=== PATIENT | male | born 1950 | race Caucasian/White ===

== ENCOUNTER 2023-07-12 08:56 | Emergency (ER) | payer OTHER, MEDICAID ==
[~2023-07-12] VITALS: Ht 175.3 cm; Wt 79.0 kg
[2023-07-12 10:03] VITALS: BP 128/72; PULSE 72; RESP 18; TEMP 99.3; O2SAT 96
[2023-07-12] MEDS ORDERED: PRED20TA2 PO (11:05)
[2023-07-12] MEDS ORDERED: ACET-1080 PO (11:05)
== END 2023-07-12 11:14 | disposition home or self-care (01) ==
LOC: ER 08:56
DX: M23.91 Unspecified internal derangement of right knee (principal)
CPT/HCPCS: 73562

== ENCOUNTER 2024-02-08 10:49 | Emergency (ER) | payer OTHER, MEDICAID ==
[~2024-02-08] VITALS: Ht 172.7 cm; Wt 82.9 kg
[~2024-02-08 10:49] MED LIST: ACET-1080 PO; PRED20TA2 PO
[2024-02-08] MEDS: KETOROLAC TROMETH 30 MG/ML 1ML VIAL IM ONE (11:20)
--- NOTE | 2024-02-08 11:27 | ED.PDOC ---
Back pain HPI HPI Comments 73 y.o male presents to the ED for a chief complaint of left lateral chest wall pain that started 10 days ago s/p playing with his dog. Patient reports pain presented after twisting himself. Patient denies any falls, heavy lifting, hematuria. Patient has a medical history of Cervical trauma with paralyzes. Chief Complaint: Fall Injury Time Seen by MD: 10:53 Primary Care Provider: UNKNOWN Reviewed Notes: Nurses Notes, Medications, Allergies Allergies: Coded Allergies: NO KNOWN ALLERGIES (Unverified , 02/08/24) Information Source: Patient Mode of Arrival: Ambulatory Timing: Days (10) Duration: Since onset Location of Back pain: (L) Upper back Severity: Moderate Quality: Sharp Onset: Twisting History of: None Past Medical History Past Medical History (Other): Neck injury Surgical History (Other): Cervical partial removal Family History Family History: Reviewed,noncontributory to illness Social History Smoker: Non-Smoker Alcohol: Denies ETOH Use Drugs: Denies Drug Use Lives In: Home Constitutional: denies: chills, diaphoresis, fatigue, fever, malaise, sweats, weakness, others EENTM: denies: blurred vision, double vision, ear bleeding, ear discharge, ear drainage, ear pain, ear ringing, eye pain, eye redness, hearing loss, mouth pain, mouth swelling, nasal discharge, nose bleeding, nose congestion, nose pain, photophobia, tearing, throat pain, throat swelling, voice changes, others Respiratory: denies: cough, hemoptysis, orthopnea, SOB at rest, shortness of breath, SOB with excertion, stridor, wheezing, others Cardiovascular: denies: chest pain, dizzy spells, diaphoresis, Dyspnea on exertion, edema, irregular heart beat, left arm pain, lightheadedness, palpitations, PND, syncope, others Gastrointestinal: denies: abdomen distended, abdominal pain, blood streaked bowels, constipated, diarrhea, dysphagia, difficulty swallowing, hematemesis, melena, nausea, poor appetite, poor fluid intake, rectal bleeding, rectal pain, vomiting, others Genitourinary: denies: burning, dysuria, flank pain, frequency, hematuria, incontinence, penile discharge, penile sore, pain, testicle pain, testicle sw elling, urgency, others Neurological: denies: dizziness, fainting, headache, left sided numbness, left sided weakness, numbness, paresthesia, pre-existing deficit, right sided numbness, right sided weakness, seizure, speech problems, tingling, tremors, weakness, others Musculoskeletal: reports: others (left lateral chest wall pain ); denies: back pain, gout, joint pain, joint swelling, muscle pain, muscle stiffness, neck pain Integumetry: denies: bruises, change in color, change in hair/nails, dryness, laceration, lesions, lumps, rash, wounds, others Allergic/Immunocompromised: denies: Difficulty Healing, Frequent Infections, Hives, Itching, others Hematologic/Lymphatic: denies: anemia, blood clots, easy bleeding, easy bruising, swollen glands, others Endocrine: denies: excessive hunger, excessive sweating, excessive thirst, excessive urination, flushing, intolerance to cold, intolerance to heat, unexplained weight gain, unexplained weight loss, others Psychiatric: denies: anxiety, bipolar disorder, depression, hopeless, panic disorder, schizophrenia, sleepless, suicidal, others All Other Systems: Reviewed and Negative Physical Exam General Appearance: No Apparent Distress, Normal HEENT: Normal ENT Inspection, Pharynx Normal, TMs Normal Neck: Full Range of Motion, Non-Tender, Normal, Normal Inspection Respiratory: Chest Non-Tender, Lungs Clear, No Accessory Muscle Use, No Respiratory Distress, Normal Breath Sounds Cardiovascular: No Edema, No JVD, No Murmur, No Gallop, Normal Peripheral Pulses, Regular Rate/Rhythm Breast Exam: Deferred Gastrointestinal: No Organomegaly, Non Tender, No Pulsatile Mass, Normal Bowel Sounds, Soft Genitalia: Deferred Pelvic: Deferred Rectal: Deferred Extremities: No calf tenderness, Normal capillary refill, Normal inspection, Normal range of motion, Non-tender, No pedal edema Musculoskeletal : Location: Left Extremity Location: Chest Apperance: Normal, Tenderness Neurologic: Alert, 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 Was a procedure done?: No Back Pain Differential Dx Differential Diagnosis: Fracture, Musculoskeletal Pain, Urolithiasis, Other (ptx) X-Ray, Labs, Meds, VS Vital Signs Date Time Temp Pulse Resp B/P (MAP) Pulse Ox O2 Delivery O2 Flow Rate FiO2 02/08/24 11:22 72 18 121/64 (83) 97 02/08/24 11:22 72 18 97 Room Air 02/08/24 10:58 97.4 81 16 132/90 (104) 97 Current Medications Medications (Trade) Dose Ordered Sig/Marissa Route Start Time Stop Time Status Last Admin Ketorolac Tromethamine (Toradol Injection) 15 mg ONCE ONCE IM 02/08/24 11:15 02/08/24 11:16 DC 02/08/24 11:20 Time of 1ST Reevaluation: 11:27 Reevaluation 1ST: Unchanged Time of 2ND Reevaluation: 12:38 Reevaluation 2ND: Improved Patient Education/Counseling: Diagnosis, Treatment, Prognosis, Need For Follow Up Family Education/Counseling: No Family Present Additional Information pt has a left 10th rib fracture and L3 compression fracture- no ptx. pain is not unbearable. i will start him on t#3, as pt requested Departure 1 Departure Time of Disposition: 12:39 Impression: Primary Impression: Left rib fracture Qualified Codes: S22.32XA - Fracture of one rib, left side, initial encounter for closed fracture Additional Impression: Compression fracture Disposition: 01 HOME / SELF CARE / HOMELESS Condition: Good e-Prescriptions Acetaminophen W/ Codeine (Tylenol #4 W/Codeine) 1 Tab Tb 1 TAB PO Q8HP PRN for 5 Days, #15 TAB Prov: ZIYAD RANDHAWA MD 02/08/24 Discharged With: Self Critical Care Note Critical Care Time?: No Stability Stability form required: No I personally scribed for ZIYAD RANDHAWA MD ([email or web address]) on 02/08/24 at 11:27. Electronically submitted by Kerrie Brooks ([facility]). ZIYAD RANDHAWA MD Feb 08, 2024 11:27
--- NOTE | 2024-02-08 11:43 | DVH ---
EXAMINATION: XY L RIB X RAY INDICATION: PAIN COMPARISON: None TECHNIQUE: Frontal view of the chest in oblique views of the left ribs FINDINGS: No focal consolidation, pleural effusion or significant pneumothorax. Normal cardiomediastinal silhou ette. Acute nondisplaced left 10th rib fracture. Age-indeterminate L3 compression fracture causing approxim ately 50% height loss. IMPRESSION: 1. No acute cardiopulmonary disease. 2. Acute left 10th rib fracture. Age indeterminate L3 compression fracture causing approximately 50% vertebral body height loss.
[2024-02-08] MEDS ORDERED: ACET300T58 PO (12:41)
[2024-02-08 12:51] VITALS: BP 105/67; PULSE 67; RESP 18; TEMP 98.1; O2SAT 96
== END 2024-02-08 12:53 | disposition home or self-care (01) ==
LOC: MERGE 10:49 → ER 10:49
DX: S22.32XA Fracture of one rib, left side, initial encounter for closed fracture (principal); S32.038A Other fracture of third lumbar vertebra, initial encounter for closed fracture; Z98.890 Other specified postprocedural states; X58.XXXA Exposure to other specified factors, initial encounter; Y93.89 Activity, other specified; Y92.89 Other specified places as the place of occurrence of the external cause; Y99.8 Other external cause status
CPT/HCPCS: 71101; 96372; 99283; J1885

== ENCOUNTER → 2024-02-21 | Outpatient (CLI) | payer OTHER, MEDICAID ==
[~2024-02-21] MED LIST changes: +ACET300T58 PO
== END | disposition home or self-care (01) ==
LOC: Rad HDHVI 10:31
PROVIDERS: ATTEND Internal Medicine Cardiovascular Disease
DX: Z01.818 Encounter for other preprocedural examination (principal); R94.39 Abnormal result of other cardiovascular function study
CPT/HCPCS: 93306

== ENCOUNTER → 2024-02-26 | Outpatient (CLI) | payer OTHER, MEDICAID ==
[~2024-02-26] VITALS: Ht 172.7 cm; Wt 79.4 kg
== END | disposition home or self-care (01) ==
LOC: Rad HDHVI 09:52
PROVIDERS: ATTEND Internal Medicine Cardiovascular Disease
DX: Z01.810 Encounter for preprocedural cardiovascular examination (principal); R94.31 Abnormal electrocardiogram [ECG] [EKG]
CPT/HCPCS: 78452; 93017; 96374; A9500

== ENCOUNTER 2024-09-04 18:07 | Emergency (ER) | payer OTHER, MEDICAID ==
[~2024-09-04] VITALS: Ht 172.7 cm; Wt 80.9 kg
[2024-09-04 18:52] LABS: Basophils # (auto) 0.1 10 ^3/uL (0-0.2); Basophils % (auto) 1.1 % (0.0-2.0); Eosinophils # (auto) 0.1 10 ^3/uL (0-0.8); Eosinophils % (auto) 1.7 % (0.0-7.0); Hematocrit 42.3 % (41.0-53.0); Hemoglobin 14.2 g/dL (13.5-17.5); Lymphocytes # (auto) 0.9 10 ^3/uL (0.4-5.4); Lymphocytes % (auto) 18.3 % (10.0-50.0); Mean Corpuscular Hemoglobin 29.4 pg (28.0-32.0); Mean Corpuscular Hgb Conc. 33.5 g/dL (32.0-36.0); Mean Corpuscular Volume 87.7 fL (80.0-100.0); Monocytes # (auto) 0.5 10 ^3/uL (0-1.3); Monocytes % (auto) 8.9 % (0.0-12.0); Neutrophils # (auto) 3.6 10 ^3/uL (1.6-8.6); Nucleated Red Blood Cells % 0.2 %; Platelet Count (auto) 186 10^3/uL (140-450); Red Blood Cells 4.82 10^6/uL (4.5-5.90); Red Cell Distribution Width 13.8 % (11.8-14.3); White Blood Cell 5.1 10^3/uL (4.4-10.8)
[2024-09-04 19:13] LABS: Alanine Aminotransferase 15 U/L (7-40); Albumin 4.5 g/dL (3.2-4.8); Alkaline Phosphatase 77 U/L (46-116); Anion Gap 9 (5-15); Aspartate Aminotransferase 21 U/L (<34); BUN/Creatinine Ratio 18.2 (10.0-20.0); Bilirubin, Total 0.5 mg/dL (0.2-1.0); Blood Urea Nitrogen 20 mg/dL (9-23); Calcium 10.1 mg/dL (8.7-10.4); Carbon Dioxide 26 mmol/L (20-31); Potassium 3.8 mmol/L (3.5-5.1); Sodium 143 mmol/L (136-145); Total Protein 7.2 g/dL (5.7-8.2)
[2024-09-04 19:24] LABS: Chloride 108 mmol/L (98-107); Glucose 110 mg/dL (74-106)
[2024-09-04 19:25] LABS: Lactic Acid w/Reflex 2.5 mmol/L (0.4-2.0)
--- NOTE | 2024-09-04 20:04 | DVH ---
EXAM: XY LUMBAR SPINE 3 VIEW INDICATION: Radiculopathy COMPARISON: None TECHNIQUE: 3 views of the lumbar spine were obtained. Findings: There is no evidence of an acute fracture, spondylolysis, or spondylolisthesis. Lateral wedge-shaped compression fracture of L3, likely chronic. Mild spondylosis. Multilevel [id number] degenerative disc disease. No blastic or lytic lesions are appreciated. No radiopaque foreign bodies. No superficial soft tissue abnormalities. Impression: 1. No acute osseous abnormality. 2. Mild degenerative changes with multilevel degenerative disc disease. 3. Lateral wedge-shaped compression fracture of L3 favored chronic.
--- NOTE | 2024-09-04 20:18 | DVH ---
CT BRAIN WITHOUT CONTRAST HISTORY: Altered mental status TECHNIQUE: Axial scans were obtained from the skull base through the vertex without contrast. Sagitta l and coronal reformats were generated. One or more of the following radiation dose reduction techniq ues were used for this examination: automated exposure control, adjustment of the mA and/or kV accord ing to patient size, use of iterative reconstruction technique. COMPARISON: None FINDINGS: Multifocal areas of vasogenic edema in both cerebral hemispheres, most apparent in the right frontal region. Hyperdense lesion in the left frontal lobe measuring approximately 2 cm in diameter. There is mass effect on the anterior horn of the left lateral ventricle. Edema also causes mild effac ement of the anterior horn of the right lateral ventricle. There is associated 2-3 mm of leftward sub falcine shift. The visualized paranasal sinuses and mastoid air cells are clear. No grossly displaced calvarial abno rmalities identified. IMPRESSION: Above findings suggest metastatic disease with an apparent dominant lesion in the left frontal region . Recommend MRI without and with contrast to further evaluate.
[2024-09-04] MEDS: SODIUM CHLORIDE 0.9% 1,000 ML IV ONE (20:28)
--- NOTE | 2024-09-04 20:31 | ED.PDOC ---
HPI (NEURO) HPI Comments This patient is a 74-year-old male who arrives the ED today in a wheelchair, which is not his normal means of ambulation, for evaluation of generalized left- sided weakness that has been going on for the past month. Patient states that approximately one month ago a happened noticed in his left foot was lagging. Patient states it subsequent to that he has had some left-sided weakness throughout. Patient was slow in conversation and dialogue, but denies any altered mental status. Patient denies any fever nausea or vomiting. Patient denies any traumatic events. Vital signs were stable on arrival. Chief Complaint: General Weakness Time Seen by MD: 18:13 Primary Care Provider: BRAD Johnson Notes: Nurses Notes Information Source: Patient Mode of Arrival: Wheelchair Severity: Moderate Dizziness/Weakness Severity: Unable to do activities Headache Severity: None Timing: Weeks Duration: Since onset Prehospital treatment: None Onset: At rest Circumstances: Spontaneous Symptoms: Weakness Before: Normal After: Normal Mentation Modifying factors: Nothing Associated Signs and Symptoms: None Past Medical History PAST MEDICAL HISTORY: Denies Surgical History: Denies all surgeries Family History Family History: Reviewed,noncontributory to illness Social History Smoker: Non-Smoker Alcohol: Denies ETOH Use Drugs: Denies Drug Use Lives In: Home Constitutional: denies: chills, diaphoresis, fatigue, fever, malaise, sweats, weakness, others EENTM: denies: blurred vision, double vision, ear bleeding, ear discharge, ear drainage, ear pain, ear ringing, eye pain, eye redness, hearing loss, mouth pain, mouth swelling, nasal discharge, nose bleeding, nose congestion, nose pain, photophobia, tearing, throat pain, throat swelling, voice changes, others Respiratory: denies: cough, hemoptysis, orthopnea, SOB at rest, shortness of breath, SOB with excertion, stridor, wheezing, others Cardiovascular: denies: chest pain, dizzy spells, diaphoresis, Dyspnea on exertion, edema, irregular heart beat, left arm pain, lightheadedness, palpitations, PND, syncope, others Gastrointestinal: denies: abdomen distended, abdominal pain, blood streaked bowels, constipated, diarrhea, dysphagia, difficulty swallowing, hematemesis, melena, nausea, poor appetite, poor fluid intake, rectal bleeding, rectal pain, vomiting, others Genitourinary: denies: burning, dysuria, flank pain, frequency, hematuria, incontinence, penile discharge, penile sore, pain, testicle pain, testicle swelling, urgency, others Neurological: denies: dizziness, fainting, headache, left sided numbness, left sided weakness, numbness, paresthesia, pre-existing deficit, right sided numbne ss, right sided weakness, seizure, speech problems, tingling, tremors, weakness, others Musculoskeletal: reports: others (Generalized left-sided weakness); denies: back pain, gout, joint pain, joint swelling, muscle pain, muscle stiffness, neck pain Integumetry: denies: bruises, change in color, change in hair/nails, dryness, laceration, lesions, lumps, rash, wounds, others Allergic/Immunocompromised: denies: Difficulty Healing, Frequent Infections, Hives, Itching, others Hematologic/Lymphatic: denies: anemia, blood clots, easy bleeding, easy bruising, swollen glands, others Endocrine: denies: excessive hunger, excessive sweating, excessive thirst, excessive urination, flushing, intolerance to cold, intolerance to heat, unexplained weight gain, unexplained weight loss, others Psychiatric: denies: anxiety, bipolar disorder, depression, hopeless, panic disorder, schizophrenia, sleepless, suicidal, others Unable to Obtain due to: Altered Mental Status (Patient is slightly slow in his response) Physical Exam General Appearance: Moderate Distress (Moderate distress due to the presentation of concerning left-sided weakness. Patient has minimal pain complaints, but is responding to questioning slowly.), Normal HEENT: Normal ENT Inspection, Pharynx Normal, TMs Normal Neck: Full Range of Motion, Non-Tender, Normal, Normal Inspection Respiratory: Chest Non-Tender, Lungs Clear, No Accessory Muscle Use, No Respiratory Distress, Normal Breath Sounds Cardiovascular: No Edema, No JVD, No Murmur, No Gallop, Normal Peripheral Pulses, Regular Rate/Rhythm Breast Exam: Deferred Gastrointestinal: No Organomegaly, Non Tender, No Pulsatile Mass, Normal Bowel Sounds, Soft Genitalia: Deferred Pelvic: Deferred Rectal: Deferred Extremities: Other (Patient displays some moderate left-sided weakness in upper extremities with a 3+ over 5+ noted on the left side. Greater weakness noted to the left leg throughout with a proximally 2+ over 5+ noted.) Neurologic: Alert, Other (Patient displays left-sided weakness throughout and a slow response to questioning.) Cerebellar Function: NOT DONE Reflexes: NOT DONE Skin: Dry, Normal Color, Warm Lymphatic: No Adenopathy Was a procedure done? Was a procedure done?: No Differential Diagnosis (SZ) Seizure: Other (Sepsis, electrolyte abnormality, subarachnoid hemorrhage, subdural hematoma, intracranial mass) X-Ray, Labs, Meds, VS Vital Signs Date Time Temp Pulse Resp B/P (MAP) Pulse Ox O2 Delivery O2 Flow Rate FiO2 09/04/24 20:13 55 16 95 Room Air 09/04/24 20:13 98.1 55 16 111/56 (74) 95 98.1 09/04/24 18:19 98.1 70 18 102/66 (78) 95 98.1 Lab Test 09/04/24 18:38 Range/Units White Blood Count 5.1 4.4-10.8 10^3/uL Red Blood Count 4.82 4.5-5.90 10^6/uL Hemoglobin 14.2 13.5-17.5 g/dL Hematocrit 42.3 41.0-53.0 % Mean Corpuscular Volume 87.7 80.0-100.0 fL Mean Corpuscular Hemoglobin 29.4 28.0-32.0 pg Mean Corpuscular Hemoglobin Concent 33.5 32.0-36.0 g/dL Red Cell Distribution Width 13.8 11.8-14.3 % Platelet Count 186 140-450 10^3/uL Mean Platelet Volume 9.5 6.9-10.8 fL Neutrophils (%) (Auto) 70.0 37.0-80.0 % Lymphocytes (%) (Auto) 18.3 10.0-50.0 % Monocytes (%) (Auto) 8.9 0.0-12.0 % Eosinophils (%) (Auto) 1.7 0.0-7.0 % Basophils (%) (Auto) 1.1 0.0-2.0 % Neutrophils # (Auto) 3.6 1.6-8.6 10 ^3/uL Lymphocytes # (Auto) 0.9 0.4-5.4 10 ^3/uL Monocytes # (Auto) 0.5 0-1.3 10 ^3/uL Eosinophils # (Auto) 0.1 0-0.8 10 ^3/uL Basophils # (Auto) 0.1 0-0.2 10 ^3/uL Nucleated Red Blood Cells 0.2 % Sodium Level 143 136-145 mmol/L Potassium Level 3.8 3.5-5.1 mmol/L Chloride Level 108 H 98-107 mmol/L Carbon Dioxide Level 26 20-31 mmol/L Anion Gap 9 5-15 Blood Urea Nitrogen 20 9-23 mg/dL Creatinine 1.10 0.700-1.30 mg/dL Glomerular Filtration Rate Calc 70 >90 mL/min BUN/Creatinine Ratio 18.2 10.0-20.0 Serum Glucose 110 H 74-106 mg/dL Lactic Acid Level 2.5 *H 0.4-2.0 mmol/L Calcium Level 10.1 8.7-10.4 mg/dL Total Bilirubin 0.5 0.2-1.0 mg/dL Aspartate Amino Transferase (AST) 21 <34 U/L Alanine Aminotransferase (ALT) 15 7-40 U/L Alkaline Phosphatase 77 46-116 U/L Troponin I High Sensitivity 3 L </=54 ng/L Total Protein 7.2 5.7-8.2 g/dL Albumin 4.5 3.2-4.8 g/dL Current Medications Medications (Trade) Dose Ordered Sig/Marissa Route Start Time Stop Time Status Last Admin Sodium Chloride 1,000 ml @ 1,000 mls/hr Q1H ONCE IV 09/04/24 20:00 09/04/24 20:59 09/04/24 20:28 X-Ray, Labs, Meds, VS Comment All studies performed the ED were evaluated by me personally. Laboratories were unremarkable for any systemic process. Lumbar series revealed some degenerative disc disease noted to lumbar spine. Very concerning was CT of the head findings which included multifocal areas of vasogenic edema in both cerebral hemispheres. Mass effect on the anterior horn of the left lateral ventricle. Hyperdense lesion in the left frontal lobe measuring approximately 2 cm in diameter. Contacted [facility] and spoke with Dr. Barragan. Advised him of patient history as well as patient presentation, laboratories and imaging results. He agreed to accept the patient is a transfer. He requested a dose of Keppra prior to transfer. We will accommodate his request prior to transfer. Time of 1ST Reevaluation: 20:43 Reevaluation 1ST: Unchanged Consultation: PCP Patient Education/Counseling: Diagnosis, Treatment Family Education/Counseling: Diagnosis, Treatment Departure 1 Departure Time of Disposition: 20:44 Impression: Primary Impression: Cerebral edema Additional Impression: Cerebral lesion Disposition: 02 SHORT TERM HOSPITAL Condition: Fair Discharged With: Self, Friend Critical Care Note Critical Care Time?: No Stability Stability form required: No Heart Score Heart Score: Heart Score Response (Comments) Value History N/A 0 EKG N/A 0 Age N/A 0 Risk Factors N/A 0 Troponin N/A 0 Total 0 PREMA GREGORIO PAC Sep 04, 2024 20:31
[2024-09-04] MEDS ORDERED: levETIRAcetam 1000 mg/100ml 100 ML IV ONE (20:49)
[2024-09-04] MEDS: levETIRAcetam 1000 mg/100ml 100 ML IV ONE (20:49)
[2024-09-04 21:25] VITALS: BP 112/57; PULSE 58; RESP 16; TEMP 97.8; O2SAT 96
== END 2024-09-04 20:23 | disposition short-term general hospital (02) ==
LOC: ER 18:13
DX: G93.6 Cerebral edema (principal); G93.9 Disorder of brain, unspecified
CPT/HCPCS: 36415; 70450; 72100; 80053; 83605; 84484; 85025; 96365; 99285; J1953

== ENCOUNTER 2024-10-02 13:35 | Emergency (ER) | payer OTHER, MEDICAID ==
[~2024-10-02] VITALS: Ht 188 cm; Wt 109.0 kg
--- NOTE | 2024-10-02 13:48 | ED.PDOC ---
Altered Mental Status HPI Comments 74-year-old male presents with a chief complaint of ALOC x 1 week. Per EMS, son called 911 due to patient being more altered than his baseline. At baseline patient is A/Ox2. Patient has a GCS score of 6 per EMS. Patients vital signs are all stable at this time per EMS. No reports of chest pain, abdominal pain, na usea, vomiting, or diarrhea. No family members available at bedside during our initial evaluation PMHx: Brain Cancer, Cerebral Edema PSHx: [INSERT] HPI: Poor Historian. REVIEW OF SYSTEMS: CONSTITUTIONAL: Denies acute: fever, diaphoresis, chills, HEAD: Denies acute: headache, photophobia Eyes: Denies acute: Double vision, vision loss, eye pain, eye discharge. EARS: Denies acute: tinnitus, hearing loss, ear discharge, ear pain, THROAT: Denies acute: sore throat, swelling, difficulty swallowing , pain with swallowing, change in voice. NECK: Denies acute: neck pain, neck swelling, stiff neck. HEART: Denies acute : chest pain, palpitations, LUNGS: Denies acute: SOB, wheezing, cough, hemoptysis ABDOMEN: Denies acute: abdominal pain, Nausea, Vomiting, diarrhea, melena , hematemesis, hematochezia SKIN: Denies acute: rash, redness, lesions, itchiness. EXTREMITIES: Denies acute: calf pain, numbness, tingling, weakness, denies pain in extremity. Denies acute: Low back pain. Neuro: Denies acute: focal neurological deficit, motor or sensory focal neurological deficit, tremors, seizure like activity, loss of bowel or bladder function, cauda equina like symptoms. : Denies acute: dysuria, hematuria, flank pain, increase in urinary frequency. PSYCH: Denies acute: hallucination, suicidal ideation, homicidal ideation. PHYSICAL EXAM: General: -----no---acute distress, awake and alert. Head: normocephalic, atraumatic. Neck: supple, trachea is midline, no swelling. Throat: Normal phonation. Eyes:, no erythema, no purulent discharge, no proptosis, no icterus. Heart: regular rate, regular rhythm, no significant murmur appreciated. Lungs: no apparent respiratory distress, No wheezing, no rhonchi, no crackles. No stridors Clear to auscultation bilaterally. Abdomen: non tender to palpation, non distended, soft, no guarding, no rebound, + bowel sounds. Skin: no petechia, no purpura, no cyanosis, non-pale, not jaundice. Lower extremities: --no - Pitting edema no deformity, no focal swelling, no calf TTP. Face: no apparent facial droop. Open eyes to painful stimuli. Blinks occasionally. Able to keep his eyes for awhile after he was aroused. Patient made some eye contact. Pupils are reactive to light bilaterally equally. ED COURSE: DISCLAIMER: This medical document was created using an electronic medical record system with voice recognition software and computerized dictation system. Although this document has been carefully reviewed, there might still be some phonetic and typographical errors. Occasional wrong-word or "sound-alike" substitutions may have occurred due to the inherent limitations of voice recognition software. These areas are purely typographical due to imperfections of the software programs and do not reflect any compromise in the patient's medical care. Please read the chart carefully and recognize, using context, where these substitutions have occurred. Time Seen by MD: 13:37 Primary Care Provider: BRAD Johnson Notes: Allergies Allergies: Coded Allergies: NO KNOWN ALLERGIES (Unverified , 07/12/23) Home Meds Active Scripts Acetaminophen W/ Codeine (Tylenol #4 W/Codeine) 1 Tab Tb, 1 TAB PO Q8HP PRN for 5 Days, #15 TAB Prov:ZIYAD RANDHAWA MD 02/08/24 Prednisone (Prednisone) 20 Mg Tab, 40 MG PO DAILY, #20 MG Prov:DAYSI ZAVALA 07/12/23 Acetaminophen (Tylenol 8 Hour Arthritis) 650 Mg Tab, 650 MG PO TID, #30 TAB Prov:DAYSI ZAVALA 07/12/23 Information Source: Emergency Med Personnel Past Medical History PAST MEDICAL HISTORY: Cancer Surgical History: Denies all surgeries Family History Family History: Reviewed,noncontributory to illness Social History Smoker: Non-Smoker Alcohol: Denies ETOH Use Drugs: Denies Drug Use Lives In: Home Was a procedure done? Was a procedure done?: No Differential Diagnosis (ALOC) Differential Diagnosis: Encephalopathy, Meningitis, Seizure, Mass Lesion, Other (DDX include CVA, TGA, cerebellar ischemia/infarct, carotid stenosis, Intracranial mass/infection/bleed, encephalopathy, electrolyte abnormality, thyroid disease, hydrocephalus, hypoglycemia, drug toxicity, cardiac arrhythmia, seizure, infection in the elderly, Hyperammonemia., kidney failure., sepsis.) X-Ray, Labs, Meds, VS Vital Signs Date Time Temp Pulse Resp B/P (MAP) Pulse Ox O2 Delivery O2 Flow Rate FiO2 10/02/24 17:20 98.2 65 16 105/65 (78) 97 98.2 10/02/24 15:00 65 17 117/72 (87) 98 10/02/24 14:16 99.3 67 17 117/64 (81) 98 99.3 10/02/24 13:49 98.4 74 17 109/60 (76) 96 98.4 10/02/24 13:36 76 Lab Test 10/02/24 16:58 10/02/24 14:59 10/02/24 13:51 Range/Units Troponin I High Sensitivity 4 4 < 3 L </=54 ng/L White Blood Count 5.5 4.4-10.8 10^3/uL Red Blood Count 5.11 4.5-5.90 10^6/uL Hemoglobin 15.7 13.5-17.5 g/dL Hematocrit 47.6 41.0-53.0 % Mean Corpuscular Volume 93.1 80.0-100.0 fL Mean Corpuscular Hemoglobin 30.7 28.0-32.0 pg Mean Corpuscular Hemoglobin Concent 33.0 32.0-36.0 g/dL Red Cell Distribution Width 14.9 H 11.8-14.3 % Platelet Count 205 140-450 10^3/uL Mean Platelet Volume 7.8 6.9-10.8 fL Neutrophils (%) (Auto) 66.8 37.0-80.0 % Lymphocytes (%) (Auto) 15.7 10.0-50.0 % Monocytes (%) (Auto) 14.5 H 0.0-12.0 % Eosinophils (%) (Auto) 2.4 0.0-7.0 % Basophils (%) (Auto) 0.6 0.0-2.0 % Neutrophils # (Auto) 3.7 1.6-8.6 10 ^3/uL Lymphocytes # (Auto) 0.9 0.4-5.4 10 ^3/uL Monocytes # (Auto) 0.8 0-1.3 10 ^3/uL Eosinophils # (Auto) 0.1 0-0.8 10 ^3/uL Basophils # (Auto) 0 0-0.2 10 ^3/uL Nucleated Red Blood Cells 0.1 % Sodium Level 142 136-145 mmol/L Potassium Level 4.5 3.5-5.1 mmol/L Chloride Level 109 H 98-107 mmol/L Carbon Dioxide Level 22 20-31 mmol/L Anion Gap 11 5-15 Blood Urea Nitrogen 35 H 9-23 mg/dL Creatinine 0.69 L 0.700-1.30 mg/dL Glomerular Filtration Rate Calc 97 >90 mL/min BUN/Creatinine Ratio 50.7 H 10.0-20.0 Serum Glucose 111 H 74-106 mg/dL Lactic Acid Level 1.5 0.4-2.0 mmol/L Calcium Level 8.9 8.7-10.4 mg/dL Magnesium Level 2.5 1.6-2.6 mg/dL Total Bilirubin 0.7 0.2-1.0 mg/dL Aspartate Amino Transferase (AST) 32 13-40 U/L Alanine Aminotransferase (ALT) 21 7-40 U/L Alkaline Phosphatase 97 46-116 U/L Ammonia < 10 L 11-32 umol/L Total Protein 6.7 5.7-8.2 g/dL Albumin 4.3 3.2-4.8 g/dL [place] [id number] Ph: [phone] DIAGNOSTIC IMAGING Diagnostic Imaging Report : [id number] Signed PATIENT: THUY RIVERA ACCT: [id number] UNIT: [id number] : 1950 LOC: ER ROOM / BED: / AGE / SEX: 74 / M ADM STATUS: REG ER SERVICE [id number] ORDERING PHYSICIAN: TINA PLASCENCIA DO PROCEDURE(s): HWOCT - HEAD WITHOUT CONTRAST REASON: ALOC X 1 WEEK ORDER NUMBER(s): [id number], ACCESSION NUMBER(s): [id number] EXAM: CT HEAD WITHOUT CONTRAST INDICATION: ALOC X 1 WEEK TECHNIQUE: CT of the head without intravenous contrast. Radiation Dose : 1. Head: CT Dose: CTDI volume is 56.2 mGy. Dose-length product is 900.7 mGy*cm The dose indicators for CT are the volume Computed Tomography (CT) Dose Index (CTDIvol) and the Dose Length Product (DLP), and are measured in units of mGy and mGy-cm, respectively. These indicators are not patient dose, but values generated from the CT scanner acquisition factors. The report includes radiation exposure data for exposures received during this examination. COMPARISON: CT HEAD WITHOUT CONTRAST on DOS: 09/04/24 FINDINGS: Multifocal areas of vasogenic edema in both cerebral hemispheres, most apparent in the right frontal region. Hyperdense lesion in the left frontal lobe measuri ng approximately 2 cm in diameter. There is mass effect on the anterior horn of the left lateral ventricle. Edema also causes mild effacement of the anterior horn of the right lateral ventricle. There is associated 2-3 mm of leftward subfalcine shift. The visualized paranasal sinuses and mastoid air cells are clear. No grossly displaced calvarial abnormalities identified. IMPRESSION: Findings are suspicious for diffuse metastatic disease which is increased since CT dated 09/04/2024. There is redemonstration of leftward midline shift and effacement of the right lateral ventricle secondary to mass effect which is also increased. ATED BY: MONTANA CALVIN MD DICTATED DATE/TIME: 10/02/24 145 SIGNED BY: MONTANA CALVIN MD SIGNED DATE/TIME: 10/02/24 145 CC: [place] [id number] Ph: [phone] DIAGNOSTIC IMAGING Diagnostic Imaging Report : [id number] Signed PATIENT: THUY RIVERA ACCT: [id number] UNIT: [id number] : 1950 LOC: ER ROOM / BED: / AGE / SEX: 74 / M ADM STATUS: REG ER SERVICE [id number] ORDERING PHYSICIAN: TINA PLASCENCIA DO PROCEDURE(s): CXRP - CHEST PORTABLE REASON: ALOC X 1 WEEK ORDER NUMBER(s): [id number], ACCESSION NUMBER(s): [id number] CHEST RADIOGRAPH Indication: ALOC X 1 WEEK Technique: Single frontal view of the chest was obtained COMPARISON: None FINDINGS: Lines and Tubes: None Lungs: Patchy bilateral lower lobe airspace disease. Pleura: No effusion. No pneumothorax. Cardiomediastinal contours: Unremarkable Bones: Unremarkable IMPRESSION: Patchy bilateral lower lobe airspace disease. ATED BY: MONTANA CALVIN MD DICTATED DATE/TIME: 10/02/241447 SIGNED BY: MONTANA CALVIN MD SIGNED DATE/TIME: 10/02/241447 X-Ray, Labs, Meds, VS Comment Yulissa Rivera ([id number]) and Geoff Rivera (Brother) Time of 1ST Reevaluation: 14:09 Reevaluation 1ST: Unchanged Time of 2ND Reevaluation: 14:59 (Per Braden Garcia.He called 911 today because he thought that the patient is in some type of pain. He has been nonverbal for at least a week. His level of consciousness has been altered for at least a week. This individual lives with him because he has his this. She will father.Medications: Gabapentin, Keppra, PepcidPatient has history of metastatic brain cancer was seen at [facility] and is awaiting radiation therapy which has not started yet.He was last seen at [facility] at the end of August.This individual moved to live with him proximally three weeks ago.Per this individual, patient has not signed any end of life code status forms yet.No known drug allergies.) Reevaluation 2ND: Unchanged Time of 3RD Reevaluation: 15:15 (The case was discussed with the admitting team (HPI, physical exam, labs and diagnostic tests that were available at the time of disposition, ED course, treatment plan) on the phone. They agreed to accept the transfer to their facility for possible neurosurgical intervention and for higher level of care accepting Dr. Browning ER attending. ) Patient Education/Counseling: Other (ALOC) Family Education/Counseling: No Family Present Comments MDM: patient presented with the above HPI.--altered level of consciousness----workup was initiated. patient was found with the above me ntioned diagnosis. the following medications were ordered: please refer to order lists of meds and tests obtained by myself Dr. Plascencia. Patient ED course and VS have been stabilized. Patient has been reassessed in the ED and remained in a stable condition. Pertinent incidental findings were discussed with the family. family voices understanding and is agreeable with plan. Patient has been observed in the ED adequate length of time to insure improvement/stability. Escalation of care considered: Consideration of escalation to observation or admission Patient was transferred to higher level of care for further evaluation and treatment of their presentation. All the reports of any imaging studies that were ordered by myself were reviewed by myself. Departure 1 Departure Time of Disposition: 13:54 Impression: Primary Impression: Altered level of consciousness Additional Impressions: Metastatic cancer to brain Midline shift of brain Airspace disease Disposition: 02 SHORT TERM HOSPITAL Admit to: Tele Condition: Guarded Discharged With: Self Critical Care Note Critical Care Time?: Yes (1 hr-critical care time only) I personally scribed for TINA PLASCENCIA DO ([email or web address]) on 10/02/24 at 13:48. Electronically submitted by Harry Ernandez ([email or web address]). I personally scribed for TINA PLASCENCIA DO ([email or web address]) on 10/02/24 at 13:58. Electronically submitted by Harry Ernandez ([email or web address]). I personally scribed for TINA PLASCENCIA DO ([email or web address]) on 10/02/24 at 15:28. Electronically submitted by Harry Ernandez ([email or web address]). I personally scribed for TINA PLASCENCIA DO ([email or web address]) on 10/02/24 at 17:19. Electronically submitted by Harry Ernandez ([email or web address]). TINA PLASCENCIA DO Oct 02, 2024 13:48
[2024-10-02 14:04] LABS: Hematocrit 47.6 % (41.0-53.0); Hemoglobin 15.7 g/dL (13.5-17.5); Mean Corpuscular Hemoglobin 30.7 pg (28.0-32.0); Mean Corpuscular Volume 93.1 fL (80.0-100.0); Nucleated Red Blood Cells % 0.1 %
[2024-10-02 14:17] LABS: Alanine Aminotransferase 21 U/L (7-40); Albumin 4.3 g/dL (3.2-4.8); Alkaline Phosphatase 97 U/L (46-116); Anion Gap 11 (5-15); BUN/Creatinine Ratio 50.7 (10.0-20.0); Calcium 8.9 mg/dL (8.7-10.4); Carbon Dioxide 22 mmol/L (20-31); Magnesium 2.5 mg/dL (1.6-2.6); Potassium 4.5 mmol/L (3.5-5.1); Sodium 142 mmol/L (136-145); Total Protein 6.7 g/dL (5.7-8.2)
[2024-10-02 14:18] LABS: Bilirubin, Total 0.7 mg/dL (0.2-1.0)
[2024-10-02 14:23] LABS: Blood Urea Nitrogen 35 mg/dL (9-23); Chloride 109 mmol/L (98-107); Glucose 111 mg/dL (74-106)
[2024-10-02] MEDS: NALOXONE HCL 1MG/ML 2ML SYRINGE IV ONE (14:23)
--- NOTE | 2024-10-02 14:51 | DVH ---
CHEST RADIOGRAPH Indication: ALOC X 1 WEEK Technique: Single frontal view of the chest was obtained COMPARISON: None FINDINGS: Lines and Tubes: None Lungs: Patchy bilateral lower lobe airspace disease. Pleura: No effusion. No pneumothorax. Cardiomediastinal contours: Unremarkable Bones: Unremarkable IMPRESSION: Patchy bilateral lower lobe airspace disease.
--- NOTE | 2024-10-02 14:54 | DVH ---
EXAM: CT HEAD WITHOUT CONTRAST INDICATION: ALOC X 1 WEEK TECHNIQUE: CT of the head without intravenous contrast. Radiation Dose : 1. Head: CT Dose: CTDI volume is 56.2 mGy. Dose-length product is 900.7 mGy*cm The dose indicators for CT are the volume Computed Tomography (CT) Dose Index (CTDIvol) and the Dose Length Product (DLP), and are measured in units of mGy and mGy-cm, respectively. These indicators are not patient dose, but values generated from the CT scanner acquisition factors. The report includes radiation exposure data for exposures received during this examination. COMPARISON: CT HEAD WITHOUT CONTRAST on DOS: 09/04/24 FINDINGS: Multifocal areas of vasogenic edema in both cerebral hemispheres, most apparent in the right frontal region. Hyperdense lesion in the left frontal lobe measuring approximately 2 cm in diameter. There is mass effect on the anterior horn of the left lateral ventricle. Edema also causes mild effac ement of the anterior horn of the right lateral ventricle. There is associated 2-3 mm of leftward sub falcine shift. The visualized paranasal sinuses and mastoid air cells are clear. No grossly displaced calvarial abno rmalities identified. IMPRESSION: Findings are suspicious for diffuse metastatic disease which is increased since CT dated 09/04/2024. There is redemonstration of leftward midline shift and effacement of the right lateral ventricle seco ndary to mass effect which is also increased.
[2024-10-02] MEDS: levETIRAcetam 1000 mg/100ml 100 ML IV ONE (15:18)
[2024-10-02] MEDS: cefTRIAXone 1GM/50ML D5W 50 ML IV ONE (16:56)
[2024-10-02 17:20] VITALS: BP 105/65; PULSE 65; RESP 16; TEMP 98.2; O2SAT 97
--- NOTE | 2024-10-02 18:47 | ECG ---
[facility] Test Date: 2024-10-02 Test Time: 13:35:42 Pat Name: THUY RIVERA Department: ED Room: Gender: M Armament Repairer: MERCEDES : 1950 Requested By: TINA PLASCENCIA Order Number: [id number] Reading MD: Measurements Intervals [place] Rate: 76 P: 53 [place]: 145 QRS: 55 QRSD: 108 T: 17 QT: 377 QTc: 424 Interpretive Statements Sinus rhythm Probable left atrial enlargement Borderline repolarization abnormality Baseline wander in lead(s) V1 Please click the below link to view image of tracing.
== END 2024-10-02 15:11 | disposition short-term general hospital (02) ==
LOC: EDUNIT# 13:35 → EDBD 13:35 → ER 13:39
DX: R40.4 Transient alteration of awareness (principal); C79.31 Secondary malignant neoplasm of brain; J98.4 Other disorders of lung; G93.5 Compression of brain; Z79.52 Long term (current) use of systemic steroids; Z79.899 Other long term (current) drug therapy
CPT/HCPCS: 36415; 70450; 71045; 80053; 82140; 82947; 83605; 83735; 84484; 85025; 93005; 96365; 96375; 99285; J0696; J1100; J1953; J2312